=== PATIENT | male | born 1950 | race Caucasian/White ===

== ENCOUNTER → 2018-07-23 | Outpatient (CLI) | payer OTHER | LOC: FIMAGING 14:02 | PROVIDERS: ATTEND Orthopaedic Surgery | DX: M17.12 Unilateral primary osteoarthritis, left knee (principal); M25.462 Effusion, left knee ==

== ENCOUNTER 2018-08-01 07:54 | Observation (INO) | payer OTHER ==
--- NOTE | 2018-08-01 07:10 | PDHPUP ---
History & Physical Update H&P update statement: This history and physical update is based on an assessment of the patient which was completed after admission or registration (within 24 hours), but prior to the surgery/procedure. H&P update: H&P reviewed & patient examined, no change in patient's condition since H&P completed
[~2018-08-01 07:54] MED LIST: MIDAZOLAM 2 MG/2 ML VIAL IVP ONE; ROPIVACAINE 0.2% 80 MG, EPINEPHrine 0.2 MG, KETOROLAC TROMETHAMINE 30 MG in SYRINGE 0 ML IU ONE; TRANEXAMIC ACID 3,000 MG in NS (SYRINGE) 50 ML IRR ONE; TRANEXAMIC ACID 3,000 MG/50 ML BAG IRR ONE
[2018-08-01] MEDS ORDERED: fentaNYL 100 MCG/2 ML INJ ONE (08:15)
[2018-08-01] MEDS ORDERED: PROPOFOL/EMULSION 500 MG/50 ML BOTTLE IV ONE (08:16)
[2018-08-01] MEDS ORDERED: MIDAZOLAM 2 MG/2 ML VIAL ONE ×2 (08:16→10:08)
[2018-08-01] MEDS ORDERED: ceFAZolin 2 GM/DEXTROSE 100 ML IV ONE (08:19)
[2018-08-01] MEDS ORDERED: ACETAMINOPHEN 325 MG TAB PO ONE (08:19)
[2018-08-01] MEDS ORDERED: DEXAMETHASONE 4 MG/ML VIAL IVP ONE (08:19)
[2018-08-01] MEDS ORDERED: FAMOTIDINE 20 MG TAB PO ONE (08:19)
[2018-08-01] MEDS ORDERED: ROPIVACAINE HCL 150 MG/30 ML INJ ONE (09:11)
[2018-08-01] MEDS ORDERED: BUPIVACAINE/DEXTROSE 7.5MG/ML 2 ML SPINAL AMP SP ONE (09:11)
[2018-08-01] MEDS ORDERED: DEXAMETHASONE 4 MG/ML VIAL ONE (09:11)
[2018-08-01] MEDS ORDERED: ONDANSETRON 4 MG/2 ML VIAL ONE (09:11)
[2018-08-01] MEDS ORDERED: LR 1,000 ML IV ONE (10:01)
[2018-08-01] MEDS ORDERED: VANCOMYCIN 1 GM VIAL ONE (11:12)
[2018-08-01] MEDS ORDERED: PROPOFOL 200 MG/20 ML VIAL ONE (11:39)
[2018-08-01] MEDS ORDERED: BISACODYL 10 MG SUPP PR PRN (11:49)
[2018-08-01] MEDS ORDERED: POLYETHYLENE GLYCOL 3350 17 GM PKT PO PRN (11:49)
[2018-08-01] MEDS ORDERED: ONDANSETRON 4 MG/2 ML VIAL IVP PRN ×2 (11:49→12:11)
[2018-08-01] MEDS ORDERED: DIPHENOXYLATE/ATROPINE LOMOTIL 1 TAB PO PRN (11:49)
[2018-08-01] MEDS ORDERED: METOCLOPRAMIDE 10 MG/2 ML VIAL IVP PRN (11:49)
[2018-08-01] MEDS ORDERED: CYCLOBENZAPRINE 10 MG TAB PO PRN (11:49)
[2018-08-01] MEDS ORDERED: TEMAZEPAM 15 MG CAP PO PRN (11:49)
[2018-08-01] MEDS ORDERED: PROMETHAZINE HCL 25 MG/ML INJ IVP PRN ×2 (11:49→12:11)
[2018-08-01] MEDS ORDERED: diphenhydrAMINE 25 MG CAP PO PRN (11:49)
[2018-08-01] MEDS ORDERED: MAGNESIUM HYDROXIDE 30 ML UDCUP PO PRN (11:49)
[2018-08-01] MEDS ORDERED: LACTULOSE 20 GM/30 ML UDCUP PO PRN (11:49)
[2018-08-01] MEDS ORDERED: PROMETHAZINE HCL 25 MG SUPPR PR PRN (11:49)
[2018-08-01] MEDS ORDERED: ONDANSETRON DISINTEGRATING 4 MG TAB PO PRN (11:49)
--- NOTE | 2018-08-01 11:49 | POSTOPPROG ---
Post Op Note Date of Operation: 08/01/18 Surgeon: Jakob Rodríguez Fiberglass Ski Maker: jeffrey rodríguez Anesthesiologist: dr. villasenor Anesthesia: Spinal, Other (Specify) (adductor canal block) Pre-op Diagnosis: left knee OA Post-op Diagnosis: samel Indication: left knee pain Procedure: L TKA robot assisted Findings: severe knee OA Inf/Abcess present in the surg proc area at time of surgery?: No EBL: 50-100
[2018-08-01] MEDS ORDERED: DIAZEPAM 5 MG/ML 1 ML SYR IVP PRN (12:11)
[2018-08-01] MEDS ORDERED: LABETALOL HCL 5 MG/ML 20 ML MDV IVP PRN (12:11)
[2018-08-01] MEDS ORDERED: NALOXONE HCL 0.4 MG/ML INJ IVP PRN (12:11)
[2018-08-01] MEDS ORDERED: ALBUTEROL 3 ML DEYVIAL IH PRN (12:11)
[2018-08-01] MEDS ORDERED: fentaNYL 100 MCG/2 ML INJ IVP PRN (12:11)
[2018-08-01] MEDS ORDERED: HYDROmorphONE/DILAUDID 2 MG/ML INJ IVP PRN (12:11)
--- NOTE | 2018-08-01 13:06 | PDANEPAE ---
ANE Past Medical History - Cardiovascular History Hx Hypertension: Yes Hx Arrhythmias: No Hx Chest Pain: No Hx Coronary Artery / Peripheral Vascular Disease: No Hx CHF / Valvular Disease: No Hx Palpitations: No - Pulmonary History Hx COPD: No Hx Asthma/Reactive Airway Disease: No Hx Recent Upper Respiratory Infection: No Hx Oxygen in Use at Home: No Hx Sleep Apnea: No Sleep Apnea Screening Result - Last Documented: Positive - Neurologic History Hx Cerebrovascular Accident: No Hx Seizures: No Hx Dementia: No - Endocrine History Hx Diabetes: No - Renal History Hx Renal Disorders: No - Liver History Hx Hepatic Disorders: No - Neurological & Psychiatric Hx Hx Neurological and Psychiatric Disorders: No - Cancer History Hx Cancer: No - Congenital Disorder History Hx Congenital Disorders: No - GI History Hx Gastrointestinal Disorders: No - Other Health History Other Health History: Pt with hx of Hep C underwent tx and is now clear - Chronic Pain History Chronic Pain: No - Surgical History Prior Surgeries: none in last 5 yrs ANE Review of Systems Review of Systems: - Exercise capacity METS (RN): 5 METS ANE Patient History - Allergies Allergies/Adverse Reactions: No Known Allergies Allergy (Verified 07/03/18 14:37) - Home Medications Home Medications: Ibuprofen [Motrin (*)] 200 mg PO DAILY PRN 06/25/18 [Last Taken 07/04/18] Lisinopril/Hydrochlorothiazide [Zestoretic 20-25 mg Tablet] 1 each PO DAILY [Last Taken 07/31/18] Olopatadine 0.1% [Patanol 0.1% Opht Drop (RX)] 1 drop EACHEYE DAILY 06/25/18 [ Last Taken 07/31/18] Simvastatin [Zocor] 20 mg PO HS 06/25/18 [Last Taken 07/31/18] - NPO status NPO Since - Liquids (Date): 08/01/18 NPO Since - Liquids (Time): 06:30 NPO Since - Solids (Date): 07/30/18 NPO Since - Solids (Time): 18:00 - Smoking Hx Smoking Status: Never smoked - Family Anes Hx Family Hx Anesthesia Complications: none ANE Labs/Vital Signs - Vital Signs Blood Pressure: 130/84 Heart Rate: 57 Respiratory Rate: 20 O2 Sat (%): 93 Height: 182.88 cm Weight: 99.79 kg ANE Physical Exam - Airway Neck exam: FROM Mallampati Score: Class 2 Mouth exam: normal dental/mouth exam - Pulmonary Pulmonary: no respiratory distress, clear to auscultation - Cardiovascular Cardiovascular: regular rate and rhythym, no murmur, rub, or gallop - ASA Status ASA Status: II ANE Anesthesia Plan Anesthesia Plan: spinal Regional Anesthesia: adductor canal FNB
--- NOTE | 2018-08-01 13:06 | POSTANESTH ---
Post Anesthetic Evaluation Respiratory Status: Normal, Stable Level of Consciousness/Mental Status: Can Participate in Eval Pain Control: Adequate, Prn Tx Ordered Nausea/Vomiting Control: Adequate, Prn Tx Ordered Complications Possibly Related to Anesthesia: None Noted
[2018-08-01] MEDS: oxyCODONE IR 5 MG TAB PO PRN ×2 (15:13→21:16)
[2018-08-01] MEDS: ACETAMINOPHEN 325 MG TAB PO SCH ×3 (15:27→23:38)
[2018-08-01] MEDS ORDERED: LISINOPRIL/HCTZ 10/12.5 MG 1 EA TAB PO ONE (17:30)
[2018-08-01] MEDS: ceFAZolin 2 GM/DEXTROSE 100 ML IV SCH (18:27)
[2018-08-01] MEDS: LR 1,000 ML IV SCH (18:28)
[2018-08-01] MEDS ORDERED: ATORVASTATIN CALCIUM 10 MG TAB PO SCH (21:00)
[2018-08-01] MEDS: SENNOSIDES/DOCUSATE SODIUM TAB PO SCH (21:14)
[2018-08-01] MEDS: ASPIRIN 81 MG CHEWABLE TAB PO SCH (21:15)
[2018-08-01] MEDS: FAMOTIDINE 20 MG TAB PO SCH (21:15)
[2018-08-01] MEDS: OLOPATADINE 0.1% 5 ML OPHT.BTL EACHEYE SCH (21:17)
[2018-08-02] MEDS: LR 1,000 ML IV SCH ×2 (02:04→03:48)
[2018-08-02] MEDS: ceFAZolin 2 GM/DEXTROSE 100 ML IV SCH (02:04)
[2018-08-02] MEDS: oxyCODONE IR 5 MG TAB PO PRN (03:57)
[2018-08-02] MEDS: ACETAMINOPHEN 325 MG TAB PO SCH ×2 (06:11→11:30)
--- NOTE | 2018-08-02 08:26 | SOAPPROG ---
SOAP Progress Note Assessment/Plan: Assessment: Patient is doing well POD 1 s/p LTKA Pain management: pain is well controlled on oral pain meds. VTE ppx: recommend aspirin 81 mg BID for 4 weeks, cont MARYCRUZ and SCDs Anemia: level is expected initially postop. Asymptomatic. Continue to monitor D/c planning: d/c to home today pending release from PT Plan: 08/02/18 08:26 Subjective: patient is doing well, denies SOB, chest pain and N/V. Objective: Vital Signs Temp Pulse Resp BP Pulse Ox 36.4 C 61 16 149/88 H 94 08/02/18 06:43 08/02/18 06:43 08/02/18 06:43 08/02/18 06:43 08/02/18 06:43 Laboratory Results 08/02/18 04:17 08/01/18 08/02/18 08/03/18 05:59 05:59 05:59 Intake Total 3560 Output Total 1780 600 Balance 1780 -600 LLE: incision dressing is clean and dry, NVI, +pf/df ICD10 Worksheet Patient Problems: Problems Problem Status Onset Primary localized osteoarthritis of left knee Acute
[2018-08-02] MEDS: ASPIRIN 81 MG CHEWABLE TAB PO SCH (08:39)
[2018-08-02] MEDS: FAMOTIDINE 20 MG TAB PO SCH (08:40)
[2018-08-02] MEDS: SENNOSIDES/DOCUSATE SODIUM TAB PO SCH (08:40)
--- NOTE | 2018-08-02 08:46 | GDS ---
ADMISSION DIAGNOSIS: Left knee osteoarthritis. DISCHARGE DIAGNOSIS: Left knee osteoarthritis. PROCEDURE: Left total knee arthroplasty. VTE PROPHYLAXIS: Recommend aspirin 81 mg twice daily for 4 weeks. BRIEF DESCRIPTION OF HOSPITAL STAY: Patient was admitted for an elective joint arthroplasty. The pa arlen tolerated the procedure well and has passed physical therapy. The patient was given appropriat e antibiotic prophylaxis and venous thromboembolism prophylaxis. The patient's pain was well control led on oral pain medication, patient was holding down food, and had urinated. Decision was made to d ischarge the patient. The patient was given post-operative prescriptions pre-operatively. PLAN: To follow up as scheduled with Dr. Sarah's office in 3 weeks. /[id number]/MODL
[2018-08-02] MEDS: OLOPATADINE 0.1% 5 ML OPHT.BTL EACHEYE SCH (08:51)
[2018-08-02] MEDS ORDERED: LISINOPRIL/HCTZ 10/12.5 MG 1 EA TAB PO SCH (09:00)
--- NOTE | 2018-08-02 10:57 | GOP ---
DATE OF OPERATION: 08/01/2018 SURGEON: Brook Sarah MD BOTTLE CAPPING MACHINE OPERATOR: Elise Sarah PA-C ANESTHESIA: Spinal. PREOPERATIVE DIAGNOSIS: Left knee osteoarthritis. POSTOPERATIVE DIAGNOSIS: Left knee osteoarthritis. PROCEDURE PERFORMED: Left total knee arthroplasty with computer navigation, robotic assist. FINDINGS: ESTIMATED BLOOD LOSS: 30 cc. INDICATIONS: The patient is a 68-year-old male with severe and progressive pain and deformity of the left knee unresponsive to conservative care. The risks and benefits of surgical intervention were explained in detail. DESCRIPTION OF PROCEDURE: The patient was brought to the operative room and placed on the table in the supine position. Spinal anesthesia was induced without difficulty. A pneumatic tourniquet was applied about the left proximal thigh, and the leg was prepped and draped in a sterile fashion. The leg calle was applied. After exsanguination by elevation the tourniquet was inflated to 250 mmHg. Incision was made anterior medial from the tibial tuberosity to a point __ cm proximal to the superior pole of the patella. Medial parapatellar arthrotomy was carried out from the superior pole of the patella and posteriorly in line with the fibers of the Type II VMO. The medial collateral ligament was elevated and the infrapatellar fat pad was resected. The patella was everted and the articular surface was excised. A 38 mm patellar button was placed. Attention was turned first to the distal aspect of the femur. After exposure of the femur, 2 half pins were placed for fixation of the femoral array. In a similar fashion, 2 pins were placed anteromedial on the tibia for fixation of the tibial array. External land marking and registration of the hip center was performed without difficulty. Internal femoral and tibial registration was carried out without difficulty and the femoral and tibial checkpoints were placed and verified for accuracy. Attention was turned to the femur. The foot print for the size 6 femoral component was cut with the saw using the [email or web address] robotic system and verified for accuracy against the CT based plan. In a similar fashion, the saw was used to cut the footprint for the size 7 tibial component using the BETH system and verified for accuracy against the CT based plan. The tibial articular surface was excised without difficulty, followed by the intercondylar box cut. The knee was extended and the remnants of the medial and lateral meniscus were excised. The posterior capsule was injected with ropivacaine, epinephrine and Toradol. A size 7 tibial tray was positioned. Trial reduction was then carried out. There was excellent range of motion, alignment, and stability using the 7 x 9 mm polyethylene. All trials were then removed. The joint was thoroughly irrigated and carefully dried. The cemented components were implanted. The permanent 9 mm polyethylene was placed without difficulty. The tourniquet was deflated and all bleeders were coagulated. The wound was thoroughly irrigated and closed using interrupted sutures of 2-0 Vicryl for the joint capsule. The subcu was closed with 3-0 Vicryl and the skin with 4-0 Monocryl. Dermabond and Steri-Strips were applied followed by a compressive dressing. The patient was then moved from the operating room to the recovery room in good condition, having tolerated the procedure well. /[id number]/MODL MTDD
--- NOTE | 2018-08-02 11:16 | ASMTLACE ---
LACE Length of stay for Answers: 2 days current admission Acuity / Level of Answers: No Care: Did the patient have an inpatient admission? Comorbidities - select Answers: Other Notes: HTN all that apply # of Emergency department Answers: 0 visits in the last 6 months Score: 3 Date Signed: 08/02/2018 11:15 AM Electronically Signed By:NAJMA Blanco
[2018-08-02 11:39] VITALS: BP 129/79
== END 2018-08-02 12:05 | disposition home or self-care (01) ==
LOC: F3N 07:54
PROVIDERS: ADMIT Orthopaedic Surgery; ATTEND Orthopaedic Surgery
DX: M17.12 Unilateral primary osteoarthritis, left knee (principal); I10 Essential (primary) hypertension; Z23 Encounter for immunization
CPT/HCPCS: 27447; 73560; 88311; 90686; 97116; 97161; C1713; C1776; G0008; G8978; G8979; G8980; J0171; J0690; J1100; J1885; J2250; J2405; J2704; J2795; J3010; J3370; J2550

== ENCOUNTER → 2018-10-18 | Outpatient (CLI) | payer OTHER | LOC: FIMAGING 14:33 | PROVIDERS: ATTEND Orthopaedic Surgery | DX: Z01.818 Encounter for other preprocedural examination (principal); M17.11 Unilateral primary osteoarthritis, right knee; M25.461 Effusion, right knee; M23.41 Loose body in knee, right knee ==

== ENCOUNTER 2018-11-09 11:02 | Observation (INO) | payer OTHER ==
[~2018-11-09 11:02] MED LIST changes: -MIDAZOLAM 2 MG/2 ML VIAL IVP ONE; +VANCOMYCIN 1 GM VIAL ONE
[2018-11-09] MEDS ORDERED: DEXAMETHASONE 4 MG/ML VIAL IVP ONE (11:19)
[2018-11-09] MEDS ORDERED: ceFAZolin 2 GM/DEXTROSE 100 ML IV ONE (11:19)
[2018-11-09] MEDS ORDERED: ACETAMINOPHEN 325 MG TAB PO ONE (11:19)
[2018-11-09] MEDS ORDERED: FAMOTIDINE 20 MG TAB PO ONE (11:19)
[2018-11-09] MEDS ORDERED: LR 1,000 ML IV ONE (11:20)
[2018-11-09] MEDS ORDERED: MIDAZOLAM 2 MG/2 ML VIAL IVP ONE (12:48)
--- NOTE | 2018-11-09 12:49 | PDANEPAE ---
ANE History of Present Illness knee ANE Past Medical History - Cardiovascular History Hx Hypertension: Yes Hx Arrhythmias: No Hx Chest Pain: No Hx Coronary Artery / Peripheral Vascular Disease: No Hx CHF / Valvular Disease: No Hx Palpitations: No - Pulmonary History Hx COPD: No Hx Asthma/Reactive Airway Disease: No Hx Recent Upper Respiratory Infection: No Hx Oxygen in Use at Home: No Hx Sleep Apnea: No Sleep Apnea Screening Result - Last Documented: Positive Pulmonary History Comment: marquis triggers - Neurologic History Hx Cerebrovascular Accident: No Hx Seizures: No Hx Dementia: No - Endocrine History Hx Diabetes: No Hypothyroid: No Hyperthyroid: No Obesity: mild - Renal History Hx Renal Disorders: No - Liver History Hx Hepatic Disorders: No - Neurological & Psychiatric Hx Hx Neurological and Psychiatric Disorders: No - Cancer History Hx Cancer: No - Congenital Disorder History Hx Congenital Disorders: No - GI History GERD: no Hx Gastrointestinal Disorders: No - Other Health History Other Health History: Pt with hx of Hep C underwent tx and is now clear - Chronic Pain History Chronic Pain: No - Surgical History Prior Surgeries: none in last 5 yrs ANE Review of Systems Review of Systems: - Exercise capacity Exercise capacity: >=4 METS METS (RN): 5 METS ANE Patient History - Allergies Allergies/Adverse Reactions: No Known Allergies Allergy (Verified 11/09/18 11:34) - Home Medications Home medications: home medication list seen and reviewed Home Medications: Lisinopril/Hydrochlorothiazide [Zestoretic 20-25 mg Tablet] 1 each PO DAILY [Last Taken 11/09/18 06:00] Simvastatin [Zocor] 20 mg PO HS 06/25/18 [Last Taken 11/08/18 20 MG] Ibuprofen [Motrin (*)] 200 mg PO DAILY PRN 10/16/18 [Last Taken 2 Weeks Ago ~] - NPO status NPO Status: no food or drink >8 hours NPO Since - Liquids (Date): 11/09/18 NPO Since - Liquids (Time): 06:00 NPO Since - Solids (Date): 11/08/18 NPO Since - Solids (Time): 20:00 - Anes Hx Anes Hx: no prior problems - Smoking Hx Smoking Status: Never smoked - Family Anes Hx Family Hx Anesthesia Complications: none ANE Labs/Vital Signs - Vital Signs Blood Pressure: 164/97 Heart Rate: 67 Respiratory Rate: 18 O2 Sat (%): 94 Height: 182.88 cm Weight: 99.79 kg ANE Physical Exam - Airway Mallampati Score: Class 2 Mouth exam: normal dental/mouth exam - Pulmonary Pulmonary: no respiratory distress - Cardiovascular Cardiovascular: regular rate and rhythym - ASA Status ASA Status: II ANE Anesthesia Plan Anesthesia Plan: spinal Regional Anesthesia: adductor canal FNB
[2018-11-09] MEDS ORDERED: PROPOFOL/EMULSION 500 MG/50 ML BOTTLE IV ONE ×2 (12:59→13:41)
[2018-11-09] MEDS ORDERED: LIDOCAINE 2% 5 ML SDV ONE (13:00)
[2018-11-09] MEDS ORDERED: BUPIVACAINE/DEXTROSE 7.5MG/ML 2 ML SPINAL AMP SP ONE (13:00)
[2018-11-09] MEDS ORDERED: ePHEDrine SULFATE 25 MG/5 ML SYR ONE (13:41)
[2018-11-09] MEDS ORDERED: ROPIVACAINE HCL 150 MG/30 ML INJ ONE (13:41)
[2018-11-09] MEDS ORDERED: MAGNESIUM HYDROXIDE 30 ML UDCUP PO PRN (13:46)
[2018-11-09] MEDS ORDERED: PROMETHAZINE HCL 25 MG SUPPR PR PRN (13:46)
[2018-11-09] MEDS ORDERED: LACTULOSE 20 GM/30 ML UDCUP PO PRN (13:46)
[2018-11-09] MEDS ORDERED: METOCLOPRAMIDE 10 MG/2 ML VIAL IVP PRN (13:46)
[2018-11-09] MEDS ORDERED: ONDANSETRON DISINTEGRATING 4 MG TAB PO PRN (13:46)
[2018-11-09] MEDS ORDERED: TEMAZEPAM 15 MG CAP PO PRN (13:46)
[2018-11-09] MEDS ORDERED: DIPHENOXYLATE/ATROPINE LOMOTIL 1 TAB PO PRN (13:46)
[2018-11-09] MEDS ORDERED: ONDANSETRON 4 MG/2 ML VIAL IVP PRN ×2 (13:46→14:26)
[2018-11-09] MEDS ORDERED: diphenhydrAMINE 25 MG CAP PO PRN (13:46)
[2018-11-09] MEDS ORDERED: BISACODYL 10 MG SUPP PR PRN (13:46)
[2018-11-09] MEDS ORDERED: POLYETHYLENE GLYCOL 3350 17 GM PKT PO PRN (13:46)
[2018-11-09] MEDS ORDERED: PROMETHAZINE HCL 25 MG/ML INJ IVP PRN (13:46)
[2018-11-09] MEDS ORDERED: CYCLOBENZAPRINE 10 MG TAB PO PRN (13:46)
[2018-11-09] MEDS ORDERED: LR 1,000 ML IV SCH (14:00)
[2018-11-09] MEDS ORDERED: fentaNYL 100 MCG/2 ML INJ IVP PRN (14:26)
[2018-11-09] MEDS ORDERED: NALOXONE HCL 0.4 MG/ML INJ IVP PRN (14:26)
[2018-11-09] MEDS ORDERED: ALBUTEROL 3 ML DEYVIAL IH PRN (14:26)
[2018-11-09] MEDS ORDERED: HYDROmorphONE/DILAUDID 2 MG/ML INJ IVP PRN (14:26)
[2018-11-09] MEDS ORDERED: LR 500 ML IV PRN (14:26)
--- NOTE | 2018-11-09 14:34 | POSTOPPROG ---
Post Op Note Date of Operation: 11/09/18 Surgeon: Jakob Rodríguez Bed Spring Maker: jeffrey rodríguez PA-C Anesthesiologist: dr. banda Anesthesia: Spinal, Other (Specify) (adductor canal block) Pre-op Diagnosis: right knee OA Post-op Diagnosis: same Indication: right knee pain Procedure: R med PKA robot assisted Findings: severe medial knee OA Inf/Abcess present in the surg proc area at time of surgery?: No EBL: 50-100
--- NOTE | 2018-11-09 14:51 | POSTANESTH ---
Post Anesthetic Evaluation Cardiovascular Status: Normal, Stable Respiratory Status: Normal, Stable Level of Consciousness/Mental Status: Can Participate in Eval Pain Control: Adequate, Prn Tx Ordered Nausea/Vomiting Control: Adequate, Prn Tx Ordered Complications Possibly Related to Anesthesia: None Noted
[2018-11-09] MEDS: ACETAMINOPHEN 325 MG TAB PO SCH ×2 (17:34→23:57)
[2018-11-09] MEDS: oxyCODONE IR 5 MG TAB PO PRN ×3 (17:34→23:56)
[2018-11-09] MEDS ORDERED: ATORVASTATIN CALCIUM 10 MG TAB PO SCH (21:00)
[2018-11-09] MEDS: ceFAZolin 2 GM/DEXTROSE 100 ML IV SCH (21:19)
[2018-11-09] MEDS: SENNOSIDES/DOCUSATE SODIUM TAB PO SCH (21:26)
[2018-11-09] MEDS: FAMOTIDINE 20 MG TAB PO SCH (21:27)
[2018-11-09] MEDS: ASPIRIN 81 MG CHEWABLE TAB PO SCH (21:27)
[2018-11-10] MEDS: ceFAZolin 2 GM/DEXTROSE 100 ML IV SCH (05:24)
[2018-11-10] MEDS: oxyCODONE IR 5 MG TAB PO PRN ×2 (05:26→10:10)
[2018-11-10] MEDS: ACETAMINOPHEN 325 MG TAB PO SCH ×2 (05:27→12:26)
[2018-11-10] MEDS ORDERED: LISINOPRIL/HCTZ 10/12.5 MG 1 EA TAB PO SCH (09:00)
[2018-11-10] MEDS: SENNOSIDES/DOCUSATE SODIUM TAB PO SCH (10:10)
[2018-11-10] MEDS: FAMOTIDINE 20 MG TAB PO SCH (10:11)
[2018-11-10] MEDS: ASPIRIN 81 MG CHEWABLE TAB PO SCH (10:12)
--- NOTE | 2018-11-10 10:59 | SOAPPROG ---
SOAP Progress Note Assessment/Plan: Assessment: Patient is doing well POD 1 s/p R med PKA Pain management: pain is well controlled on oral pain meds. VTE ppx: recommend aspirin daily for 3 weeks, cont MARYCRUZ and SCDs Anemia: level is expected initially postop. Asymptomatic. Continue to monitor D/c planning:patient has done much better than anticipated. Patient is stable, BP stable, pain well controlled and patient is eager for discharge to home. May d/c to home today pending release from PT spasms: flexeril alleviated spasms, sent script via EMR. sleep disturbance: patient states Restoril was helpful for a good night's sleep. Stated that we do not prescribe for at home use as no one is monitoring vitals while on narcotics. Recommend patient discuss further with PCP if he would like, but that I do not feel comfortable prescribing it for at home use. Plan: 11/10/18 10:56 11/10/18 10:57 Subjective: Rip is doing well today, denies SOB, chest pain and N/V Objective: Vital Signs Temp Pulse Resp BP Pulse Ox 36.6 C 62 16 130/82 H 98 11/10/18 07:52 11/10/18 07:52 11/10/18 07:52 11/10/18 10:12 11/10/18 07:52 Laboratory Results 11/10/18 05:35 11/09/18 11/10/18 11/11/18 05:59 05:59 05:59 Intake Total 2275 450 Output Total 600 700 Balance 1675 -250 RLE: incision dressing is clean and dry, NVI, +pf/df ICD10 Worksheet Patient Problems: Problems Problem Status Onset Primary localized osteoarthritis of right knee Acute Primary localized osteoarthritis of left knee Acute
--- NOTE | 2018-11-10 11:33 | GDS ---
ADMISSION DIAGNOSIS: Right knee osteoarthritis. DISCHARGE DIAGNOSIS: Right knee osteoarthritis. PROCEDURE: Right partial knee arthroplasty, robotic-assisted. VTE PROPHYLAXIS: Recommend aspirin 81 mg twice daily for 4 weeks. BRIEF DESCRIPTION OF HOSPITAL STAY: Patient was admitted for an elective joint arthroplasty. The pa tient tolerated the procedure well and has passed physical therapy. The patient was given appropriat e antibiotic prophylaxis and venous thromboembolism prophylaxis. The patient's pain was well control led on oral pain medication, patient was holding down food, and had urinated. Decision was made to d ischarge the patient. The patient was given post-operative prescriptions pre-operatively. PLAN: Follow up as scheduled in Dr. Sarah's office on November 29. /[id number]/MODL
[2018-11-10 11:55] VITALS: BP 146/88
--- NOTE | 2018-11-10 19:36 | GOP ---
DATE OF OPERATION: 11/09/2018 SURGEON: Brook Sarah MD FLOOR TECHNICIAN: VICKIE Cooper. ANESTHESIA: Spinal. PREOPERATIVE DIAGNOSIS: Right knee osteoarthritis. POSTOPERATIVE DIAGNOSIS: Right knee osteoarthritis. PROCEDURE PERFORMED: Right medial compartment partial knee replacement computer navigation robotic assist. FINDINGS: ESTIMATED BLOOD LOSS: 30 cc. INDICATIONS: This is a 68-year-old male with progressive pain of the right knee unresponsive to conservative care. Risks and benefits of surgical intervention were explained in detail. DESCRIPTION OF PROCEDURE: The patient was brought to the operating room and placed on the table in supine position. Spinal anesthesia was induced without difficulty. A pneumatic tourniquet was applied about the right proximal thigh and the leg was prepped and draped in sterile fashion. Attention was turned first to the distal aspect of the right femur. At 3 cm proximal to the lateral rise of the femur, 2 percutaneous half pins were placed for fixation of the femoral array. In a similar fashion, 2 pins were placed anterolateral on the tibia for fixation of the tibial array. External land marking and registration of the hip center was performed without difficulty. After exsanguination by elevation, the tourniquet was inflated to 250 mmHg. Incision was made from the tibial tuberosity to the superior pole of the patella. Dissection was carried out through the subcutaneous tissue to the deep fascia using Bovie electrocautery for hemostasis. Medial parapatellar arthrotomy was carried out to the superior pole of the patella. The medial collateral ligament was elevated and the infrapatellar fat pad was resected. Internal femoral and tibial registration was carried out without difficulty and the femoral and tibial checkpoints were placed and verified for accuracy. Attention was turned to the femur. The foot print for the size 6 femoral component was cut with the 6 mm bur using the [employer] robotic system and verified for accuracy against the CT based plan. The hole was cut for the femoral post. In a similar fashion, the 6 mm bur was used to cut the foot print for the size 6 tibial component using the [employer]ETH system and verified for accuracy against the CT based plan. Attention was turned to the posterior aspect of the knee and remnants of the medial meniscus were excised. The posterior capsule was injected with ropivacaine, epinephrine and Toradol. Trial reduction was carried out and there was excellent range of motion, alignment and stability using the size 6 femoral component and the size 6 tibial component. All trials were then removed. The joint was thoroughly irrigated and carefully dried. One package of cement and 1 gram of vancomycin were mixed in the vacuum mixer and placed on the fixation surfaces of all components. The components were implanted and all excess cement was thoroughly removed. Implant placement was verified against the CT view plan and found to be excellent. The tourniquet was deflated and all bleeders were coagulated. The wound was thoroughly irrigated and closed using interrupted sutures of 2-0 Vicryl for the joint capsule. The subcu was closed with 3-0 Vicryl and the skin with 4-0 Monocryl. Dermabond and Steri-Strips were applied, followed by a compressive dressing. The patient was then moved from the operating room to the recovery room in good condition, having tolerated the procedure well. CASE CLASSIFICATION: Clean. /[id number]/MODL MTDD
== END 2018-11-10 12:45 | disposition home or self-care (01) ==
LOC: F3N 11:02 → INTOOBSV 11:02 → F3N 15:52
PROVIDERS: ADMIT Orthopaedic Surgery; ATTEND Orthopaedic Surgery
DX: M17.11 Unilateral primary osteoarthritis, right knee (principal); E66.9 Obesity, unspecified; Z68.31 Body mass index [BMI] 31.0-31.9, adult; I10 Essential (primary) hypertension; Z96.652 Presence of left artificial knee joint
CPT/HCPCS: 27446; 73560; 97116; 97161; C1713; C1776; G8978; G8979; G8980; J0171; J0690; J1100; J1885; J2250; J2704; J2795; J3370